=== PATIENT | female | born 1960 | race Caucasian/White ===

== ENCOUNTER → 2017-07-12 | Outpatient (CLI) | payer OTHER | END | disposition home or self-care (01) | LOC: RAD 12:34 | DX: R07.81 Pleurodynia (principal) | CPT/HCPCS: 71020 ==

== ENCOUNTER 2018-02-01 00:16 | Emergency (ER) | payer OTHER ==
[~2018-02-01] VITALS: Ht 172.7 cm; Wt 91.9 kg
[2018-02-01 00:31] LABS: HEMATOCRIT 44.6 % (36.0-46.0); HEMOGLOBIN 15.1 G/DL (11.9-15.5); MCH 29.7 PG (29.0-34.0); MCHC 33.9 G/DL (30.0-36.0); MCV 87.6 FL (83-99); PLATELET COUNT 277 K/uL (156-360); RBC DIS.WIDTH-CV 11.6 % (11.8-14.6); RBC DIS.WIDTH-SD 37.5 % (39-53); RED BLOOD COUNT 5.09 M/uL (3.80-5.20); WHITE BLOOD COUNT 10.8 K/uL (4.1-10.2)
[2018-02-01 00:45] LABS: CHLORIDE 104 mEq/L (99-109); SODIUM 143 mEq/L (136-147)
[2018-02-01 00:46] LABS: GLUCOSE 134 mg/dL (70-99)
[2018-02-01 00:50] LABS: CREATININE 0.8 mg/dL (0.6-1.3); GFR ESTIMATE (CALCULATED) > 59 mL/min/
[2018-02-01 00:51] LABS: UREA NITROGEN (BUN) 14 mg/dL (9-23)
[2018-02-01 00:59] LABS: TROP-I INTERPRETATION NEGATIVE; TROPONIN-I < 0.01 ng/mL (0.0-0.30)
[2018-02-01 02:52] LABS: TROP-I INTERPRETATION NEGATIVE; TROPONIN-I < 0.01 ng/mL (0.0-0.30)
[2018-02-01 03:40] VITALS: BP 127/72
== END 2018-02-01 03:45 | disposition home or self-care (01) ==
LOC: EME 00:16
PROVIDERS: Emergency Medicine
DX: R07.9 Chest pain, unspecified (principal); J98.11 Atelectasis
CPT/HCPCS: 71046; 80048; 84484; 85027; 93005; 99281; 99285

== ENCOUNTER → 2018-02-04 | Outpatient (CLI) | payer OTHER | END | disposition home or self-care (01) | LOC: EKG 10:57 | DX: R07.89 Other chest pain (principal); Z83.42 Family history of familial hypercholesterolemia | CPT/HCPCS: 93017 ==